=== PATIENT | male | born 1955 | race Caucasian/White ===

== ENCOUNTER 2022-04-05 04:36 | Day surgery (SDC) | payer OTHER ==
[2022-04-04 13:02] VITALS: BMI 26.6
[2022-04-05 07:27] VITALS: TEMP 97.6
[2022-04-05 09:48] VITALS: BP 129/76; PULSE 64; RESP 18
== END 2022-04-05 09:15 | disposition home or self-care (01) ==
LOC: JASU-ENDO 04:36
PROVIDERS: ATTEND Internal Medicine Gastroenterology
PROC: 0DJD8ZZ Inspection of Lower Intestinal Tract, Via Natural or Artificial Opening Endoscopic (ICD-10-PCS; principal; 2022-04-05 08:00)
DX: Z12.11 Encounter for screening for malignant neoplasm of colon (principal); K57.30 Diverticulosis of large intestine without perforation or abscess without bleeding; Z86.010 Personal history of colon polyps